=== PATIENT | female | born 1990 | race Caucasian/White ===

== ENCOUNTER 2017-09-11 12:15 | Emergency (ER) | payer BC ==
[~2017-09-11] VITALS: Ht 167.6 cm; Wt 81.6 kg
[2017-09-11 12:18] VITALS: BP 133/92
[2017-09-11] MEDS ORDERED: IBUPROFEN 600 MG TABLET PO ONE (12:54)
[2017-09-11] MEDS: IBUPROFEN 600 MG TABLET PO ONE (12:56)
== END 2017-09-11 14:22 | disposition home or self-care (01) ==
LOC: ER 12:21
DX: S63.501A Unspecified sprain of right wrist, initial encounter (principal); E03.9 Hypothyroidism, unspecified; Z88.1 Allergy status to other antibiotic agents; X58.XXXA Exposure to other specified factors, initial encounter; Y93.89 Activity, other specified; Y92.89 Other specified places as the place of occurrence of the external cause; Y99.8 Other external cause status
CPT/HCPCS: 73110; A4606; Z7610